=== PATIENT | male | born 1970 | race Caucasian/White ===

== ENCOUNTER → 2021-10-11 14:03 | Outpatient (CLI) | payer MEDICAID, SELFPAY ==
--- NOTE | 2021-10-11 13:45 | DI.RAD_ITS ---
Exam(s) XR SHOULDER RT COMPLETE 2+V EXAM: XR SHOULDER RT COMPLETE 2+V CLINICAL HISTORY: severe pain in rt shoulder - M25.511, Pain in lt shoulder - M25.512. TECHNIQUE: 2D digital imaging was performed. Five views. COMPARISON: No exams were available for comparison FINDINGS: BONES: No acute fracture is present. No bony destructive lesion is seen. JOINTS: No dislocation present. Minimal spurring AC joint and glenoid. SOFT TISSUE: Normal. IMPRESSION: Mild degenerative changes. DATA REPOSITORY: RADIATION DOSE DELIVERED:
== END ==
PROVIDERS: PCP Family Medicine; Visit Provider Family Medicine
DX: M25.511 Pain in right shoulder (principal); M25.512 Pain in left shoulder; M19.011 Primary osteoarthritis, right shoulder
CPT/HCPCS: 73030

== ENCOUNTER 2021-10-11 14:49 | Outpatient (CLI) | payer MEDICAID, SELFPAY ==
[2021-10-11 14:31] LABS: ESR 1 mm/hr (0-15)
[2021-10-11 14:34] LABS: HGB 14.2 g/dL (13.5-17.5); MCH 32.5 pg (27.0-33.0); MCHC 34.6 % (32.0-36.0); MCV 94 fL (80-95); MPV 10.4 fL (8.0-11.0); Platelet Count 333 10^3/uL (130-400); RBC 4.37 10^6/uL (4.36-5.78); RDW 12.4 % (11.8-14.1); RDW-SD 42.7 fL; WBC 7.67 10^3/uL (4.4-10.8)
[2021-10-11 15:10] LABS: ALT 14 U/L (16-63); AST 11 U/L (15-37); Albumin 4.1 g/dL (3.4-5.0); Alkaline Phosphatase 68 U/L (46-116); Anion Gap 4.7 mmol/L (3-11); BUN 5 mg/dL (7-18); Bilirubin, Total 1.2 mg/dL (0.2-1.0); C-Reactive Protein 0.06 mg/dL (0.0-0.3); CO2 33.3 mmol/L (21.0-32.0); CREATININE 0.7 mg/dL (0.70-1.30); Calcium 9.7 mg/dL (8.5-10.1); Chloride 104 mmol/L (98-107); Glucose 94 mg/dL (74-106); Potassium 4.3 mmol/L (3.5-5.1); Sodium 142 mmol/L (136-145); TSH 2.57 uIU/mL (0.36-3.74); Total Protein 7.9 g/dL (6.4-8.2)
[2021-10-11 19:18] LABS: Calculated LDL 78 mg/dL (<100); Cholesterol 145 mg/dL (<200); HDL Cholesterol 39 mg/dL (40-60); Triglyceride 142 mg/dL (<150)
== END 2021-10-11 14:50 | disposition home or self-care (01) ==
LOC: LBO 14:49
PROVIDERS: PCP Family Medicine; Visit Provider Family Medicine
DX: I10 Essential (primary) hypertension (principal); M25.511 Pain in right shoulder; M19.011 Primary osteoarthritis, right shoulder; M25.512 Pain in left shoulder; Z13.6 Encounter for screening for cardiovascular disorders
CPT/HCPCS: 36415; 80053; 80061; 85027; 85652; 73030; 84443; 86140

== ENCOUNTER → 2021-11-11 02:24 | Outpatient (CLI) | payer MEDICAID, SELFPAY ==
--- NOTE | 2021-11-11 08:45 | DI.MRI_ITS ---
Exam(s) MR UPPER JOINT RT WO EXAM: MR UPPER JOINT RT WO CLINICAL HISTORY: severe right shoulder pain, partially frozen, M25.519, M75.00. TECHNIQUE: Multiplanar multisequence MRI was performed. COMPARISON: None. FINDINGS: Bones: There is no fracture or contusion pattern. Degenerative subchondral cysts in the superior humeral he ad. The acromioclavicular joint shows mild spurring and fluid in the joint space.. Spurring at the tip t he acromion. Glenohumeral joint: Small amount fluid in the glenohumeral joint. No subacromial, subcoracoid or g lenohumeral joint effusion is present. Rotator Cuff: The supraspinatus tendon shows some high signal beneath the tip of the acromion consistent with a par tial tear. The infraspinatus tendon is intact. The subscapularis and teres minor are normal. No mus yazmin atrophy. Labrum and biceps anchor: The biceps tendon is located. The anchor is well maintained. The labrum is grossly normal. There is thickening edema of the superior and inferior glenohumeral ligaments. IMPRESSION: Partial supraspinatus tendon tear. Small joint effusion.. Thickening and edema of the superior and inferior glenohumeral ligaments could indicate adhesive capsulitis. DATA REPOSITORY:
== END ==
PROVIDERS: PCP Family Medicine; Visit Provider Family Medicine
DX: S46.811A Strain of other muscles, fascia and tendons at shoulder and upper arm level, right arm, initial encounter (principal); M25.411 Effusion, right shoulder; R60.0 Localized edema; X58.XXXA Exposure to other specified factors, initial encounter
CPT/HCPCS: 73221

== ENCOUNTER 2022-08-01 10:13 | Outpatient (CLI) | payer MEDICAID, SELFPAY ==
--- NOTE | 2022-08-01 09:15 | DI.RAD_ITS ---
Exam(s) XR ELBOW RT COMPLETE EXAM: XR ELBOW RT COMPLETE CLINICAL HISTORY: right elbow pain. TECHNIQUE: 2D digital imaging was performed of the left elbow. Three images were obtained. AP, lat eral and oblique views were obtained. COMPARISON: No exams were available for comparison FINDINGS: BONES: No acute fracture is present. No bony destructive lesion is seen. JOINTS: The elbow is normally aligned. No joint effusion is seen. SOFT TISSUE: Normal. IMPRESSION: Unremarkable radiographs of the right elbow. DATA REPOSITORY: RADIATION DOSE DELIVERED:
== END 2022-08-01 10:14 | disposition home or self-care (01) ==
LOC: DIORS 10:13
PROVIDERS: PCP Family Medicine; Referring Provider Family Medicine; Visit Provider Physician Assistant
DX: M25.521 Pain in right elbow (principal)
CPT/HCPCS: 73080

== ENCOUNTER 2023-07-03 09:37 | Day surgery (SDC) | payer MEDICAID, SELFPAY ==
--- NOTE | 2023-07-02 16:37 | W.PM.DSUDISC ---
Date of service: 07/03/23 Time of Service: 11:05 Discharge Plan Disposition Patient Disposition: Home Condition: Good Discharge Details Reason For Visit: screening colonoscopy Attending Provider: Tip Agudelo Primary Care Provider: Maria Isabel Sena Home Meds and New Rx's Prescriptions: Continued ibuprofen 800 mg tablet 800 mg PO Q8H PRN (Reason: pain) Qty: 60 2RF Discontinued bisacodyl [Dulcolax (bisacodyl)] 5 mg tablet,delayed release (DR/EC) 5 mg PO ONCE Qty: 4 0RF Rx Instructions: Take per colonoscopy instructions provided by ordering providers office polyethylene glycol 3350 17 gram/dose powder 17 g PO ONCE Qty: 238 0RF Rx Instructions: Take per colonoscopy instructions provided by ordering providers office Discharge Instructions Instructions: Colorectal Polyps (GEN) Additional Instructions: Sami, your colonoscopy went just fine today. The prep was excellent, and I could see everything perfectly. I did find 1 polyp. It was quite small, and I removed it completely. It will take a week or 2 for me to get the results on the nature of the polyp, and once I have that, I will be in touch with recommendations for the timing of your next colonoscopy. If you have any questions in the meantime, please do not hesitate to call at any point. 1. If tolerated, consume a soft, low fiber diet for 1-2 days. 2[address] Do not drive, drink alcohol, operate machinery, make critical decisions, or do activities that require coordination or balance for 24 hours. 3. Because air was put into your colon during the procedure, expelling air from your rectum (passing gas or farting) is normal. 4. You may not have a bowel movement for 1-3 days because of the colonoscopy prep. This is normal. 5. Go directly to the emergency room if you notice any of the following: Develop chills (warm to touch), or if you have a thermometer and your temperature is above 101 Difficulty breathing or difficultly swallowing Persistent vomiting Severe abdominal pain, other than gas cramps Severe chest pain Black, tarry stools Any bleeding ? exceeding one tablespoon 6. Call your physician if the site where your intravenous was started becomes red, swollen, painful, and warm to touch. 7. Your physician has reviewed your pre-procedure medications. Please continue to take those medications as previously ordered. You will be given specific information/education regarding any changes to your medications before leaving. Activity:: Activity as Tolerated Diet:: As Tolerated Discharge Orders Discharge Orders: Discharge Order (Routine); Ordered 07/02/23 Ordered By: Tip Agudelo DS: Diagnosis Discharge Diagnosis (1) Encounter for screening colonoscopy: Status: Acute Asessment and Plan: Follow-up on polypectomy results
--- NOTE | 2023-07-02 16:39 | W.COLOREPORT ---
Date of service: 07/03/23 Time of Service: 11:06 Colonoscopy Report Date of procedure: 07/03/23 Pre-op diagnosis general: screening colonoscopy Post-op diagnosis procedure note: other (Colon polyp) Procedure: Colonoscopy with polypectomy Surgeon: Tip Agudelo Anesthesia Type: General:No Airway Estimated blood loss (mL): 5 Pathology: other (0.25 cm flat polyp at 110 cm from the anus) Complications: None Disposition: same day Indications: Sami is 53 years old and he needs a screening colonoscopy Prep: Miralax/Dulcolax Procedure Start Time: 10:42 Procedure End Time: 10:58 Retraction Time: 9 Findings: 0.25 cm flat polyp at 110 cm from the anus Procedure Description: After the induction of monitored anesthetic care, and with the patient in left lateral decubitus position, I began by performing an external anorectal exam.? Perineum and skin were normal, as was the anal verge.? There are some perianal skin tags consistent with thrombosed external hemorrhoids.? Next, I performed a digital rectal exam.? I did not appreciate any abnormal findings.? Next, I advanced a colonoscope into the rectal vault.? I performed retroflexion.? There were grade 1 internal hemorrhoids.? Using insufflation, I then advanced the colonoscope beyond the rectal folds and into the sigmoid colon before advancing towards the cecum. The scope was noted to be in the cecum by identification of the ileocecal valve and appendiceal orifice.? I then began withdrawing the colonoscope using repeated irrigation as necessary for full evaluation of the colonic mucosa. Around 110 cm from the anal verge was a 0.25 cm flat polyp. I removed with cold forceps. There was minimal bleeding. Once the scope was withdrawn to the level of the rectum, great care was taken to examine portions of the rectal folds.? Finally, the scope was withdrawn and the patient was brought to the same-day surgery recovery unit as the anesthetic wore off. ?The findings and instructions were shared with the patient prior to discharge. [place] Bowel Prep [place] Bowel Prep Right Colon: 2 Left Colon: 3 Transverse Colon: 3 Total Score: 8
[2023-07-03 09:45] VITALS: BP 137/94; PULSE 104; RESP 18; TEMP 36.3; O2SAT 97
[2023-07-03] MEDS: Lactated Ringers 1,000 ML 80 ML IV (10:06)
--- NOTE | 2023-07-03 10:34 | ANES.PREOP_ITS ---
General Info Date of Service Date Performed: 07/03/23 Height: 5 ft 7.5 in Weight: 79.8 kg Body Mass Index (BMI): 27.1 Surgical Procedure: Operation Date: 07/03/23 11:20 Proposed Procedure Side Surgeon p Colonoscopy Tip Agudelo MD Meds Allergies and Home Medications Allergies Allergy/AdvReac Type Severity Reaction Status Date / Time No Known Allergies Allergy Verified 07/03/23 09:49 Home Medication Medication Instructions Recorded ibuprofen 800 mg tablet 800 mg PO Q8H PRN pain #60 tabs 02/24/22 Current Visit Medications: Current Medications Generic Name Dose Route Start Last Admin Trade Name Freq PRN Reason Stop Dose Admin Hyoscyamine Sulfate 0.125 mg 07/02/23 16:41 Hyoscyamine 0.125 Mg Sl/Oral/Chew SL 08/01/23 16:40 DIRECTED PRN Ringer's Solution 1,000 mls @ 80 mls/hr 07/03/23 06:00 07/03/23 10:06 IV 07/03/23 23:59 80 mls/hr INFUSION DEMETRIA Administration IV Miscellaneous Supplies 1 each 07/03/23 06:00 Iv Access IV 07/03/23 23:59 DIRECTED DEMETRIA Ondansetron HCl 4 mg 07/02/23 16:41 Ondansetron 4 Mg/2 Ml Vial IVP 08/01/23 16:40 Q4H PRN PRN Nausea / Vomiting Sodium Chloride 0 ml 07/03/23 06:00 Normal Saline Flush 10 Ml Syr IV 07/03/23 23:59 PRN PRN Sodium Chloride 0 ml 07/03/23 06:00 Normal Saline 10 Ml Vial IJ 07/03/23 23:59 DIRECTED PRN Sterile Water 0 ml 07/03/23 06:00 Water,Injection,Sterile 10 Ml Vial IJ 07/03/23 23:59 DIRECTED PRN PFSH Active Problems Active Problems: Problem Status Onset Code Encounter for screening colonoscopy Z12.11 Gait disorder R26.9 Depressive disorder F32.A Elevated BP without diagnosis of hypertension R03.0 Medical History Medical History Anxiety (08/18/16) Rotator cuff tear, right Tobacco Smoking/Tobacco Use Status: Former Tobacco Use Smokeless tobacco user: chewing tobacco Passive smoking exposure: Yes Alcohol Alcohol Intake: current Alcohol intake frequency: a few times a week Alcohol type: beer Substance Use Substance use: Rarely Substance use type: marijuana Vital Signs and Lab Results Vital Signs Most Recent Vital Signs in EMR: Most Recent Vital Signs Temp Pulse Resp BP Pulse Ox 36.3 C L 104 H 18 137/94 H 97 07/03/23 09:45 07/03/23 09:45 07/03/23 09:45 07/03/23 09:45 07/03/23 09:45 Lab Results Blood Type / Crossmatch: 2 No Data to Display Complete Blood Count: 2 No Data to Display Complete Metabolic Panel: 2 No Data to Display Liver Function Panel: 2 No Data to Display Coagulation Panel: 2 No Data to Display Cardiac Panel: 2 No Data to Display Arterial Blood Gas: 2 No Data to Display Venous Blood Gas: 2 No Data to Display Pancreas Panel: 2 No Data to Display Thyroid Panel: 2 No Data to Display Infectious Disease: 2 No Data to Display Blood Cultures: 2 No Data to Display Toxicology Panel: 2 No Data to Display Anesthesia Assessment and Plan Anesthesia History Personal History: No History of Anesthesia Complications Family History: No Family History of Anesthesia Complications Exercise Tolerance Exercise Tolerance: Metabolic Equivalents>4 Pertinent Negatives Pertinent Negatives: No Symptoms of GERD, No Major Cardiovascular Symptoms or Complaints, No Major Pulmonary Symptoms or Complaints and No History of CVA/TIA Cardiac & Pulmonary Exam Cardiac Exam: Normal S1/S2 Heart Sounds Pulmonary Exam: Clear Bilateral Breath Sounds Implantable Cardiac Device Does patient have a Pacemaker or an ICD?: No Airway Exam Known Difficult Airway: No Mallampati Class: 2 Mouth Opening: Normal (> 3cm) Thyromental Distance: Greater than 3 cm Neck Range of Motion: Full ROM Neck Circumference: Normal Teeth Condition: Generalized Poor Dentition Tooth Numberin 1. Missing ASA Classification ASA Score: ASA 2 Emergency Case?: No NPO Status NPO Status: NPO Clears >2 hours, Solids >8 hours Anesthesia Plan Resuscitation Status: Full Code Anesthesia Technique: General Anesthesia Airway Planned: Natural Airway Monitors Used: Standard Monitors
[2023-07-03 10:35] VITALS: BMI 27.1
--- NOTE | 2023-07-03 10:50 | BOWEL_PTH ---
PATIENT: Sami Saleh I LOC: [facility] U#:[id number] AGE/SX: 53/M ROOM: RE07/03/[address]: Tip Agudelo MD : 1970 BED: DIS: 07/03/2023 SPEC #: [id number] RECD: 07/03/23 13:10 STATUS: JACK RE #: [id number] AMY: 07/03/23 10:[address]: Tip Agudelo DEPT: Surgical Specimen RECD BY: Kasie Ulloa ENTERED: 07/03/23 13:11 SP TYPE: Bowel OTHR DR: Maria Isabel Sena Tissues: 1 - BIOPSY BOWEL Procedures: GROSS AND MICRO LEVEL 4 Comments: [id number]
[2023-07-03 11:03] VITALS: BP 109/75; PULSE 82; RESP 16; TEMP 36.4; O2SAT 96
--- NOTE | 2023-07-03 11:09 | W.ANESPOSTOP ---
Postoperative Evaluation Date, Time and Location Date Performed: 07/03/23 Time Performed: 11:04 Patient Location: Day Surgery Unit Vital Signs Most Recent Imported Vital Signs: Most Recent Vital Signs Temp Pulse Resp BP Pulse Ox 36.4 C L 82 16 109/75 96 07/03/23 11:03 07/03/23 11:03 07/03/23 11:03 07/03/23 11:03 07/03/23 11:03 Pain Score Most Recent Pain Score: Most Recent Pain Score Pain Level 0 07/03/23 11:03 Assessment Mental Status: Awake (Alert & Oriented to Patient Baseline) Airway and Respiratory Function: Patent airway with normal (patient baseline) respiratory exam Cardiovascular Function: Hemodynamically Stable Hydration Status: Adequately Hydrated Nausea & Vomiting: No Nausea or Vomiting Pain: Pt. Denies Any Pain Peripheral Nerve Block: Patient did not receive a nerve block
[2023-07-03 11:25] VITALS: BP 127/83; PULSE 70; RESP 18; TEMP 36.3; O2SAT 96
== END 2023-07-03 11:37 | disposition home or self-care (01) ==
LOC: SUR 09:37
PROVIDERS: PCP Family Medicine; Visit Provider Surgery
PROC: 0DJD8ZZ Inspection of Lower Intestinal Tract, Via Natural or Artificial Opening Endoscopic (ICD-10-PCS; CPT 45378; principal; 2023-07-03 11:15)
DX: Z12.11 Encounter for screening for malignant neoplasm of colon (principal); K63.5 Polyp of colon
CPT/HCPCS: 45380; 88305; J2704

== ENCOUNTER 2024-01-17 15:58 | Outpatient (REF) | payer MEDICAID, SELFPAY ==
[2024-01-19 09:21] LABS: HIV-1/2 Ag & Ab Screen Negative (Negative)
[2024-01-19 09:29] LABS: Hepatitis C Ab w Rflx HCV PCR Negative (Negative)
== END 2024-01-17 15:59 | disposition home or self-care (01) ==
LOC: LBN 15:58
PROVIDERS: PCP Family Medicine; Visit Provider Family Medicine
DX: Z11.4 Encounter for screening for human immunodeficiency virus [HIV] (principal); Z11.59 Encounter for screening for other viral diseases; Z00.00 Encounter for general adult medical examination without abnormal findings
CPT/HCPCS: 86803; 87389